=== PATIENT | female | born 1955 | race Caucasian/White ===

== ENCOUNTER 2018-06-26 09:20 | Emergency (ER) | payer OTHER ==
[~2018-06-26] VITALS: Ht 162.6 cm; Wt 74.0 kg
[2018-06-26] MEDS ORDERED: QUET25TA PO (09:25)
[2018-06-26] MEDS ORDERED: DIPH25 PO (09:25)
[2018-06-26] MEDS ORDERED: ALBUTEROL SULFATE 2.5 MG/0.5 ML NEB SOLUTION NEB ONE (10:00)
[2018-06-26] MEDS ORDERED: IPRATROPIUM BROMIDE 0.5 MG/2.5 ML NEB SOLUTION NEB ONE (10:00)
[2018-06-26 10:27] LABS: APPEARANCE,URINE CLOUDY (CLEAR); BILIRUBIN,URINE NEGATIVE (NEGATIVE); GLUCOSE, URINE (UA) NEGATIVE (NEGATIVE); KETONES,URINE TRACE mg/dL (NEGATIVE); LEUKOCYTE ESTERASE ,URINE NEGATIVE (NEGATIVE); NITRATE,URINE NEGATIVE (NEGATIVE); OCCULT BLOOD,URINE TRACE (NEGATIVE); PH,URINE 6.5 (5.0-8.0); PROTEIN,URINE NEGATIVE (NEGATIVE)
[2018-06-26 10:29] LABS: ANION GAP 11 mmol/L (8-16); CALCIUM, TOTAL 9.8 mg/dL (8.8-10.5); CARBON DIOXIDE 27 mmol/L (22-29); CHLORIDE 98 mmol/L (98-107); CREATININE 0.79 mg/dL (0.60-1.30); GLOMERULAR FILTR. RATE CALC > 60 mL/min (>60); GLUCOSE,RANDOM 103 mg/dL (70-110); POTASSIUM 3.6 mmol/L (3.5-5.1); SODIUM SERUM 136 mmol/L (136-145); UREA NITROGEN, BLOOD 7 mg/dL (7-18)
[2018-06-26 10:35] LABS: ALANINE AMINOTRANSFERASE 66 U/L (12-78); ALBUMIN 3.7 g/dL (3.4-5.0); ALKALINE PHOSPHATASE 115 U/L (46-116); ASPARTATE AMINOTRANSFERASE 68 U/L (15-37); BILIRUBIN,TOTAL 0.9 mg/dL (0.1-1.0); TOTAL PROTEIN, SERUM 7.4 g/dL (6.4-8.2)
[2018-06-26 10:38] LABS: BASOPHILS % (AUTO) 0.5 % (0.0-2.0); EOSINOPHILS % (AUTO) 0.9 % (1.0-6.0); HEMATOCRIT 47.7 % (36-46); LYMPHOCYTES # (AUTO) 1.4 K/uL (1.0-4.8); LYMPHOCYTES % (AUTO) 17.3 % (22.0-44.0); MEAN CORPUSCULAR HEMOGLOBIN 32.9 pg (26.0-34.0); MEAN CORPUSCULAR HGB CONC 35.7 G/dL (31.0-37.0); MEAN CORPUSCULAR VOLUME 92 fL (80-100); MONOCYTES # (AUTO) 0.8 K/uL (0.1-1.0); MONOCYTES % (AUTO) 9.5 % (2.0-9.0); NEUTROPHILS # (AUTO) 5.9 K/uL (1.8-7.7); NEUTROPHILS % (AUTO) 71.8 % (40.0-70.0); PLATELET COUNT (AUTO) 237 K/uL (150-450); RED BLOOD CELL COUNT(AUTO) 5.18 MIL/uL (4.00-5.20); RED CELL DISTRIBUTION WIDTH 13.3 % (11.5-14.5)
[2018-06-26 10:38] LABS: BACTERIA,URINE None Seen /HPF (None Seen); RBC,URINE 0-2 /HPF (0-2); SQUAMOUS EPITHELIAL CELL,UR Few /LPF (None Seen); WBC,URINE None Seen /HPF (0-5)
[2018-06-26] MEDS ORDERED: OxyCODONE HCL/ACETAMINOPHEN 5-325 MG TABLET PO ONE (12:15)
[2018-06-26] MEDS ORDERED: KETOROLAC TROMETHAMINE 60 MG/2 ML VIAL IM ONE (12:15)
[2018-06-26] MEDS ORDERED: ALBUTEROL SULFATE HFA 90 MCG/PUFF 8 GM INHALER IH ONE (13:30)
[2018-06-26] MEDS ORDERED: CefTRIAXone SODIUM 1 GM/VIAL IM ONE (13:30)
[2018-06-26] MEDS ORDERED: PROMETHAZINE HCL/CODEINE 6.25-10MG/5ML SYRUP UDCUP PO ONE (13:30)
[2018-06-26] MEDS ORDERED: LIDOCAINE/PF 1% 2 ML VIAL IM ONE (13:30)
[2018-06-26 14:21] VITALS: BP 147/88
== END 2018-06-26 14:23 | disposition home or self-care (01) ==
LOC: EMS 09:23
DX: J06.9 Acute upper respiratory infection, unspecified (principal); R91.8 Other nonspecific abnormal finding of lung field; F31.9 Bipolar disorder, unspecified
CPT/HCPCS: 36415; 71045; 80053; 81001; 85025; 94640; 96372; 99284; J0696; J1885; J3490; J3535

== ENCOUNTER 2018-09-05 14:25 | Emergency (ER) | payer OTHER ==
[~2018-09-05] VITALS: Ht 152.4 cm; Wt 68.2 kg
[~2018-09-05 14:25] MED LIST: DIPH25 PO; QUET25TA PO
[2018-09-05] MEDS ORDERED: D-ME237L35 PO (14:37)
[2018-09-05] MEDS ORDERED: NYQUIL PO (14:37)
[2018-09-05] MEDS ORDERED: LEVALBUTEROL HCL 1.25 MG/0.5 ML NEB SOLUTION NEB ONE (15:45)
[2018-09-05] MEDS ORDERED: BENZONATATE 100 MG CAPSULE PO ONE (16:00)
[2018-09-05 18:05] VITALS: BP 151/78
== END 2018-09-05 18:07 | disposition home or self-care (01) ==
LOC: EMS 14:25
DX: J40 Bronchitis, not specified as acute or chronic (principal); F31.9 Bipolar disorder, unspecified
CPT/HCPCS: 94640

== ENCOUNTER 2025-01-21 11:13 | Inpatient (IN) | payer MEDICARE, OTHER ==
[~2025-01-21] VITALS: Ht 167.6 cm; Wt 77.4 kg
[~2025-01-21 11:13] MED LIST changes: +D-ME237L35 PO; -DIPH25 PO; +NYQUIL PO; -QUET25TA PO
[2025-01-21 12:03] LABS: PLATELET COUNT (AUTO) 362 K/uL (150-450); RED BLOOD CELL COUNT(AUTO) 3.77 MIL/uL (4.00-5.20); RED CELL DISTRIBUTION WIDTH 14.7 % (11.5-14.5); WHITE BLOOD COUNT (AUTO) 8.7 K/uL (4.5-11.0)
[2025-01-21 12:13] LABS: CALCIUM, TOTAL 8.0 mg/dL (8.8-10.5); CREATININE 0.91 mg/dL (0.60-1.30); GLOMERULAR FILTR. RATE CALC > 60 mL/min (>60); GLUCOSE,RANDOM 110 mg/dL (70-110); SODIUM SERUM 138 mmol/L (136-145); UREA NITROGEN, BLOOD 7 mg/dL (7-18)
[2025-01-21 12:22] LABS: TROPONIN I-HIGH SENSITIVITY 11 ng/L (<51)
[2025-01-21] MEDS: POTASSIUM CHLORIDE 20 MEQ ER TABLET PO ONE ×2 (13:14→14:51)
[2025-01-21] MEDS: PERMETHRIN 1% 60 ML LOTION TP ONE (14:44)
[2025-01-21] MEDS ORDERED: ONDANSETRON HCL 4 MG/2 ML VIAL IVP PRN (15:45)
[2025-01-21] MEDS ORDERED: HYDROCODONE/ACETAMINOPHEN 5-325 MG TABLET PO PRN (15:45)
[2025-01-21] MEDS ORDERED: MAGNESIUM HYDROXIDE SUSPENSION 30 ML UDCUP PO PRN (15:45)
[2025-01-21] MEDS ORDERED: BISACODYL 10 MG RECTAL RECTAL SUPPOSITORY PR PRN (15:45)
[2025-01-21] MEDS ORDERED: MORPHINE SULFATE 4 MG/ML SYRINGE IVP PRN (15:45)
[2025-01-21] MEDS: SODIUM CHLORIDE 0.9% 1,000 ML IV ONE (16:30)
[2025-01-21] MEDS: IVERMECTIN 3 MG TABLET PO ONE (16:30)
[2025-01-21] MEDS: HEPARIN SODIUM,PORCINE 5,000 UNITS/ML VIAL SQ SCH (16:30)
[2025-01-21] MEDS ORDERED: POTASSIUM CHL 10 MEQ/WATER 50 ML IV PRN (19:15)
[2025-01-21] MEDS: DOCUSATE SODIUM 100 MG CAPSULE PO SCH (20:14)
[2025-01-21 20:50] VITALS: BP 127/67; PULSE 76; RESP 18; TEMP 97.9; O2SAT 100
[2025-01-21] MEDS: ACETAMINOPHEN 325 MG TABLET PO PRN (21:19)
[2025-01-21] MEDS: POTASSIUM CHLORIDE 20 MEQ ER TABLET PO PRN (23:05)
[2025-01-22] VITALS: BP 135/68; PULSE 84; RESP 18; TEMP 97.5; O2SAT 100
[2025-01-22 04:00] VITALS: BP 121/52; PULSE 93; RESP 18; TEMP 97.7; O2SAT 97
[2025-01-22 07:56] LABS: PLATELET COUNT (AUTO) 318 K/uL (150-450); RED BLOOD CELL COUNT(AUTO) 3.50 MIL/uL (4.00-5.20); RED CELL DISTRIBUTION WIDTH 14.7 % (11.5-14.5); WHITE BLOOD COUNT (AUTO) 5.5 K/uL (4.5-11.0)
[2025-01-22 08:05] LABS: CALCIUM, TOTAL 7.9 mg/dL (8.8-10.5); CREATININE 0.78 mg/dL (0.60-1.30); GLOMERULAR FILTR. RATE CALC > 60 mL/min (>60); GLUCOSE,RANDOM 98 mg/dL (70-110); SODIUM SERUM 139 mmol/L (136-145); UREA NITROGEN, BLOOD 8 mg/dL (7-18)
[2025-01-22 08:24] VITALS: BP 133/71; PULSE 96; RESP 18; TEMP 98.2; O2SAT 96
[2025-01-22] MEDS: PANTOPRAZOLE SODIUM 40 MG DR TABLET PO SCH (08:32)
[2025-01-22 11:49] VITALS: BP 130/52; PULSE 85; RESP 18; TEMP 97.5; O2SAT 95
[2025-01-22 13:00] LABS: APPEARANCE,URINE CLEAR (CLEAR); GLUCOSE, URINE (UA) NEGATIVE (NEGATIVE); LEUKOCYTE ESTERASE ,URINE MODERATE (NEGATIVE); NITRATE,URINE NEGATIVE (NEGATIVE); OCCULT BLOOD,URINE NEGATIVE (NEGATIVE); SPECIFIC GRAVITIY, URINE 1.015 (1.003-1.030)
[2025-01-22 13:16] LABS: SQUAMOUS EPITHELIAL CELL,UR Few /LPF (None Seen)
[2025-01-22 15:57] VITALS: BP 138/69; PULSE 99; RESP 19; TEMP 98.8; O2SAT 99
[2025-01-22 20:20] VITALS: BP 146/63; PULSE 102; RESP 19; TEMP 97.5; O2SAT 100
[2025-01-23 00:07] VITALS: BP 143/55; PULSE 90; RESP 19; TEMP 98.2; O2SAT 95
[2025-01-23 04:36] VITALS: BP 142/53; PULSE 87; RESP 19; TEMP 98.2; O2SAT 94
[2025-01-23 06:46] LABS: CALCIUM, TOTAL 8.1 mg/dL (8.8-10.5); CREATININE 0.67 mg/dL (0.60-1.30); GLOMERULAR FILTR. RATE CALC > 60 mL/min (>60); GLUCOSE,RANDOM 106 mg/dL (70-110); SODIUM SERUM 139 mmol/L (136-145); UREA NITROGEN, BLOOD 6 mg/dL (7-18)
[2025-01-23 08:50] VITALS: BP 154/74; PULSE 94; RESP 18; TEMP 98.6; O2SAT 100
[2025-01-23 12:08] VITALS: BP 158/76; PULSE 98; RESP 18; TEMP 98.1; O2SAT 100
[2025-01-23 12:08] LABS: PLATELET COUNT (AUTO) 356 K/uL (150-450); RED BLOOD CELL COUNT(AUTO) 4.14 MIL/uL (4.00-5.20); RED CELL DISTRIBUTION WIDTH 15.6 % (11.5-14.5); WHITE BLOOD COUNT (AUTO) 6.8 K/uL (4.5-11.0)
[2025-01-23] MEDS: PERMETHRIN 1% 60 ML LOTION TP ONE (15:07)
[2025-01-23 16:19] VITALS: BP 143/66; PULSE 98; RESP 18; TEMP 98.6; O2SAT 99
[2025-01-23 20:41] VITALS: BP 145/72; PULSE 61; RESP 17; TEMP 98.6; O2SAT 98
[2025-01-24 00:03] VITALS: BP 143/58; PULSE 87; RESP 18; TEMP 98.2; O2SAT 95
[2025-01-24 02:38] VITALS: BP 143/51; PULSE 89; RESP 18; TEMP 98.6; O2SAT 98
[2025-01-24 12:47] LABS: PLATELET COUNT (AUTO) 327 K/uL (150-450); RED BLOOD CELL COUNT(AUTO) 3.88 MIL/uL (4.00-5.20); RED CELL DISTRIBUTION WIDTH 15.1 % (11.5-14.5); WHITE BLOOD COUNT (AUTO) 5.0 K/uL (4.5-11.0)
[2025-01-24 12:57] LABS: CALCIUM, TOTAL 8.8 mg/dL (8.8-10.5); CREATININE 0.80 mg/dL (0.60-1.30); GLOMERULAR FILTR. RATE CALC > 60 mL/min (>60); GLUCOSE,RANDOM 108 mg/dL (70-110); SODIUM SERUM 138 mmol/L (136-145); UREA NITROGEN, BLOOD 5 mg/dL (7-18)
[2025-01-24 16:00] VITALS: BP 140/78; PULSE 94; RESP 17; TEMP 97.9; O2SAT 100
[2025-01-24 19:27] VITALS: BP 144/76; PULSE 90; RESP 18; TEMP 98.1; O2SAT 97
[2025-01-24] MEDS: ZOLPIDEM TARTRATE 5 MG TABLET PO PRN (22:10)
[2025-01-25] VITALS (7 sets, daily range): BP systolic 142–159; BP diastolic 72–84; PULSE 91–121; RESP 18–20; TEMP 97.8–98.8; O2SAT 97–100
[2025-01-25] MEDS: PERMETHRIN 5% 60 GM CREAM TP ONE (09:02)
[2025-01-26 02:05] VITALS: BP 156/77; PULSE 93; RESP 18; TEMP 97.7; O2SAT 99
[2025-01-26 03:54] VITALS: BP 148/74; PULSE 94; RESP 18; TEMP 97.7; O2SAT 100
[2025-01-26 07:28] LABS: PLATELET COUNT (AUTO) 325 K/uL (150-450); RED BLOOD CELL COUNT(AUTO) 4.09 MIL/uL (4.00-5.20); RED CELL DISTRIBUTION WIDTH 15.6 % (11.5-14.5); WHITE BLOOD COUNT (AUTO) 4.7 K/uL (4.5-11.0)
[2025-01-26 07:59] LABS: CALCIUM, TOTAL 8.7 mg/dL (8.8-10.5); CREATININE 0.69 mg/dL (0.60-1.30); GLOMERULAR FILTR. RATE CALC > 60 mL/min (>60); GLUCOSE,RANDOM 114 mg/dL (70-110); SODIUM SERUM 139 mmol/L (136-145); UREA NITROGEN, BLOOD 5 mg/dL (7-18)
[2025-01-26 08:09] VITALS: BP 172/88; PULSE 111; RESP 18; TEMP 98.4; O2SAT 99
[2025-01-26 11:53] VITALS: BP 151/78; PULSE 102; RESP 17; TEMP 98.4; O2SAT 99
[2025-01-26 15:32] VITALS: BP 138/81; PULSE 112; RESP 18; TEMP 98.1; O2SAT 98
[2025-01-26] MEDS: PERMETHRIN 5% 60 GM CREAM TP ONE (16:17)
[2025-01-26] MEDS: DiphenhydrAMINE/ZINC ACET 30 GM CREAM TP ONE (16:17)
[2025-01-26] MEDS: CefTRIAXone 1 GM/DEXTROSE 50 ML IV SCH (16:19)
[2025-01-26 20:21] VITALS: BP 147/73; PULSE 86; RESP 18; TEMP 97.9; O2SAT 97
[2025-01-27 00:30] VITALS: BP 136/69; PULSE 88; RESP 18; TEMP 98.2; O2SAT 95
[2025-01-27 03:28] VITALS: BP 122/69; PULSE 89; RESP 17; TEMP 98.6; O2SAT 95
[2025-01-27 08:15] VITALS: BP 153/88; PULSE 98; RESP 17; TEMP 98.4; O2SAT 97
[2025-01-27 11:57] VITALS: BP 129/72; PULSE 90; RESP 17; TEMP 98.6; O2SAT 99
== END 2025-01-27 15:19 | DRG 640 ==
LOC: EMS 11:20 → EDH 15:42 → 5N 20:50 → 6S 01-24 02:24 → 5S 01-25 22:50
PROVIDERS: ADMIT Internal Medicine; ATTEND Internal Medicine
DX: E86.0 Dehydration (principal); G93.41 Metabolic encephalopathy; R62.7 Adult failure to thrive; E87.6 Hypokalemia; B85.2 Pediculosis, unspecified; D64.9 Anemia, unspecified; N39.0 Urinary tract infection, site not specified; F20.9 Schizophrenia, unspecified; F31.9 Bipolar disorder, unspecified; R29.6 Repeated falls; Z68.27 Body mass index [BMI] 27.0-27.9, adult
CPT/HCPCS: 71045; 80048; 81001; 83880; 84132; 84484; 85025; 85379; 87086; 93005; 96360; 96361; 96372; 97116; 97163; 99285; J0696; J1644; 36415-L1; 36415-TC